=== PATIENT | female | born 1965 ===

== ENCOUNTER 2022-10-07 15:53 | Emergency (ER) | payer SELFPAY ==
[~2022-10-07] VITALS: Ht 154.9 cm; Wt 147.7 kg
[2022-10-07 16:21] VITALS: TEMP 98.1
[2022-10-07] MEDS ORDERED: SODIUM CHLORIDE 0.9% 1,000 ML IV ONE ×2 (16:45→19:30)
[2022-10-07] MEDS ORDERED: VENL-53 PO (16:55)
[2022-10-07] MEDS ORDERED: DARU800T PO ×2 (16:55)
[2022-10-07] MEDS ORDERED: ATOR10TA69 PO (16:55)
[2022-10-07] MEDS ORDERED: METF-1211 PO (16:55)
[2022-10-07] MEDS ORDERED: VITAMIN D PO (16:55)
[2022-10-07] MEDS ORDERED: CETI-450 PO (16:55)
[2022-10-07] MEDS ORDERED: DOLU50TA PO (16:55)
[2022-10-07] MEDS ORDERED: EMTR1TAB53 PO (16:55)
[2022-10-07] MEDS ORDERED: RITO100T PO (16:55)
[2022-10-07] MEDS ORDERED: SERT-162 PO (16:55)
[2022-10-07] MEDS ORDERED: DARU100O PO (16:55)
[2022-10-07] MEDS ORDERED: IBUP-1492 PO (16:55)
[2022-10-07 17:44] LABS: BASOPHILS % (AUTO) 0.5 % (0.0-2.0); EOSINOPHILS % (AUTO) 1.3 % (1.0-6.0); HEMATOCRIT 31.6 % (36-46); HEMOGLOBIN 9.5 g/dL (12.0-16.0); LYMPHOCYTES % (AUTO) 16.3 % (22.0-44.0); MEAN CORPUSCULAR HEMOGLOBIN 19.1 pg (26.0-34.0); MEAN CORPUSCULAR VOLUME 64 fL (80-100); MONOCYTES # (AUTO) 0.4 K/uL (0.1-1.0); MONOCYTES % (AUTO) 6.8 % (2.0-9.0); NEUTROPHILS # (AUTO) 4.5 K/uL (1.8-7.7); NEUTROPHILS % (AUTO) 75.1 % (40.0-70.0); PLATELET COUNT (AUTO) 238 K/uL (150-450); RED BLOOD CELL COUNT(AUTO) 4.95 MIL/uL (4.00-5.20); RED CELL DISTRIBUTION WIDTH 20.3 % (11.5-14.5)
[2022-10-07 18:01] LABS: ANION GAP 10 mmol/L (8-16); CALCIUM, TOTAL 8.9 mg/dL (8.8-10.5); CARBON DIOXIDE 26 mmol/L (22-29); CHLORIDE 103 mmol/L (98-107); CREATININE 0.79 mg/dL (0.60-1.30); GLOMERULAR FILTR. RATE CALC > 60 mL/min (>60); GLUCOSE,RANDOM 118 mg/dL (70-110); POTASSIUM 3.8 mmol/L (3.5-5.1); SODIUM SERUM 139 mmol/L (136-145)
[2022-10-07 18:08] LABS: ALANINE AMINOTRANSFERASE 35 U/L (12-78); ALBUMIN 3.3 g/dL (3.4-5.0); ALKALINE PHOSPHATASE 118 U/L (46-116); ASPARTATE AMINOTRANSFERASE 23 U/L (15-37); BILIRUBIN,TOTAL 0.7 mg/dL (0.1-1.0); TOTAL PROTEIN, SERUM 7.3 g/dL (6.4-8.2)
[2022-10-07] MEDS ORDERED: CHOL25TA4 PO (19:28)
[2022-10-07] MEDS ORDERED: MECLIZINE HCL 25 MG TABLET PO ONE (19:30)
[2022-10-07] MEDS ORDERED: MECL-167 PO (21:10)
[2022-10-07] MEDS ORDERED: ONDA-104 PO (21:10)
[2022-10-07 21:26] VITALS: BP 127/65; PULSE 58; RESP 17
== END 2022-10-07 21:28 | disposition home or self-care (01) ==
LOC: EMS 15:56
DX: K52.9 Noninfective gastroenteritis and colitis, unspecified (principal); R42 Dizziness and giddiness; D64.9 Anemia, unspecified; E11.9 Type 2 diabetes mellitus without complications
CPT/HCPCS: 80053; 85025; 93005; 96360; 96361; 99284; 36415-L1; 36415-TC